=== PATIENT | female | born 1965 | race Two or more races ===

== ENCOUNTER 2017-12-02 22:10 | Inpatient (IN) | payer OTHER ==
[~2017-12-02] VITALS: Ht 162.6 cm; Wt 102.7 kg
[2017-12-02] MEDS ORDERED: HEPARIN 1,000 UNITS/ml 1ML VIAL IV ONE (22:30)
[2017-12-02] MEDS ORDERED: ATORVASTATIN 20 MG TAB PO ONE (22:30)
[2017-12-02] MEDS ORDERED: ASPirin 81 mg TAB PO ONE (22:30)
[2017-12-02] MEDS ORDERED: MORPHINE SULFATE 4 MG/ML SYR/VIAL IV ONE ×2 (22:30→22:45)
[2017-12-02] MEDS ORDERED: ONDANSETRON HCL 4 MG/2 ML VIAL IV ONE (22:30)
[2017-12-02] MEDS ORDERED: METOPROLOL TARTRATE 25 MG TAB PO ONE (22:30)
[2017-12-02] MEDS ORDERED: MORPHINE SULFATE 4 MG/ML SYR/VIAL ONE (22:35)
[2017-12-02] MEDS ORDERED: MIDAZOLAM HCL 1MG/1ML-2 ML VIAL ONE (22:40)
[2017-12-02] MEDS ORDERED: fentaNYL CITRATE 100 MCG/2 ML VL ONE (22:40)
[2017-12-02] MEDS ORDERED: SODIUM CHL 0.9% 50 ML ONE (22:40)
[2017-12-02] MEDS ORDERED: ANGIOMAX 250 MG VIAL IV ONE (22:40)
[2017-12-02] MEDS ORDERED: IOHEXOL 350 MG/ML 100ML IJ ONE (22:41)
[2017-12-02] MEDS ORDERED: LIDOCAINE HCL 2 %PF INJ 10ML AMP IJ ONE ×2 (22:41→23:09)
[2017-12-02 22:44] LABS: Basophils # (auto) 0 uL; Basophils % (auto) 0.5 % (0.0-2.0); Eosinophils # (auto) 0.3 uL; Hematocrit 46.5 % (36.0-46.0); Hemoglobin 15.6 g/dL (12.2-16.2); Lymphocytes # (auto) 3.4 uL; Lymphocytes % (auto) 36.6 % (10.0-50.0); Mean Corpuscular Hemoglobin 32.8 pg (28.0-32.0); Mean Corpuscular Hgb Conc. 33.6 g/dL (32.0-36.0); Mean Corpuscular Volume 97.8 fL (80.0-100.0); Monocytes # (auto) 0.7 uL; Neutrophils # (auto) 4.8 uL; Neutrophils % (auto) 51.9 % (37.0-80.0); Nucleated Red Blood Cells % 0.2 %; Platelet Count (auto) 304 10^3/uL (140-450); Red Blood Cells 4.75 10^6/uL (4.0-5.20); Red Cell Distribution Width 13.1 % (11.8-14.3); White Blood Cell 9.2 10^3/uL (4.4-10.8)
[2017-12-02 22:59] LABS: INR 0.89 (0.9-1.15); Partial Thromboplastin Time 24.7 sec (22.64-33.71); Prothrombin Time 9.7 sec (9.37-12.3)
[2017-12-02 23:00] LABS: Albumin 3.6 g/dL (3.4-5.0); BUN/Creatinine Ratio 12.2; Calcium 8.3 mg/dL (8.5-10.1); Potassium 4.4 mmol/L (3.5-5.1)
[2017-12-02 23:04] LABS: Bilirubin, Total 0.2 mg/dL (0.2-1.0); Total Protein 7.2 g/dL (6.4-8.2)
[2017-12-02] MEDS ORDERED: ONDANSETRON HCL 4 MG/2 ML VIAL ONE (23:08)
[2017-12-02] MEDS ORDERED: EPTIFIBATIDE INJ (2MG/ML) 10ML VIAL IV ONE (23:17)
[2017-12-02] MEDS ORDERED: ADENOSINE 6 MG/2 ML INJ IV ONE (23:18)
[2017-12-02] MEDS ORDERED: TICAGRELOR 90 MG TAB ONE (23:31)
[2017-12-02] MEDS ORDERED: EPTIFIBATIDE DRIP(0.75MG/ML) 100 ML IV ONE (23:31)
[2017-12-03] VITALS (7 sets, daily range): BP systolic 109–151; BP diastolic 63–86
[2017-12-03] MEDS ORDERED: NITROGLYCERIN 0.4 MG SL TAB SL PRN (00:15)
[2017-12-03] MEDS ORDERED: EPTIFIBATIDE DRIP(0.75MG/ML) 100 ML IV ONE ×2 (00:15→06:05)
[2017-12-03] MEDS ORDERED: ONDANSETRON HCL 4 MG/2 ML VIAL IV PRN (00:15)
[2017-12-03] MEDS ORDERED: MEPERIDINE HCL (50 MG/ML) 1 ML VIAL IV PRN (00:15)
[2017-12-03] MEDS ORDERED: HYDROcodone-ACET 5/325MG TAB PO PRN (00:15)
[2017-12-03] MEDS ORDERED: D5W/SOD CHL 0.45% 1,000 ML IV SCH (00:15)
[2017-12-03] MEDS ORDERED: MORPHINE SULFATE 4 MG/ML SYR/VIAL IV PRN (00:15)
[2017-12-03] MEDS ORDERED: ACETAMINOPHEN 500 MG TAB PO PRN (00:15)
[2017-12-03 08:47] LABS: INR 0.92 (0.9-1.15); Partial Thromboplastin Time 25.5 sec (22.64-33.71)
[2017-12-03] MEDS ORDERED: TICAGRELOR 90 MG TAB PO SCH (10:00)
[2017-12-03] MEDS: NICOTINE 14 MG/24HR TOPICAL PATCH TD SCH (10:00)
[2017-12-03] MEDS: ASPirin 81 mg TAB PO SCH (10:07)
[2017-12-03] MEDS ORDERED: ATORVASTATIN 20 MG TAB PO SCH (22:00)
[2017-12-03] MEDS: TICAGRELOR 90 MG TAB PO SCH (23:14)
[2017-12-03] MEDS: METOPROLOL TARTRATE 25 MG TAB PO SCH (23:15)
[2017-12-04 05:31] VITALS: BP 119/68
[2017-12-04 07:05] LABS: Basophils # (auto) 0 uL; Basophils % (auto) 0.4 % (0.0-2.0); Eosinophils # (auto) 0.1 uL; Eosinophils % (auto) 1.9 % (0.0-7.0); Hemoglobin 14.6 g/dL (12.2-16.2); Lymphocytes % (auto) 26.9 % (10.0-50.0); Mean Corpuscular Hemoglobin 32.9 pg (28.0-32.0); Mean Corpuscular Hgb Conc. 34.1 g/dL (32.0-36.0); Mean Corpuscular Volume 96.6 fL (80.0-100.0); Monocytes # (auto) 0.5 uL; Monocytes % (auto) 6.5 % (0.0-12.0); Neutrophils # (auto) 4.7 uL; Neutrophils % (auto) 64.3 % (37.0-80.0); Nucleated Red Blood Cells % 0.1 %; Platelet Count (auto) 247 10^3/uL (140-450); Red Blood Cells 4.45 10^6/uL (4.0-5.20); Red Cell Distribution Width 12.7 % (11.8-14.3); White Blood Cell 7.4 10^3/uL (4.4-10.8)
[2017-12-04 07:48] LABS: BUN/Creatinine Ratio 10.8; Calcium 8.1 mg/dL (8.5-10.1); Magnesium 2.4 mg/dL (1.6-2.6); Potassium 4.1 mmol/L (3.5-5.1)
[2017-12-04 09:00] VITALS: BP 121/77
[2017-12-04] MEDS: NICOTINE 14 MG/24HR TOPICAL PATCH TD SCH (10:29)
[2017-12-04] MEDS: TICAGRELOR 90 MG TAB PO SCH (10:30)
[2017-12-04] MEDS: ASPirin 81 mg TAB PO SCH (10:31)
[2017-12-04] MEDS: METOPROLOL TARTRATE 25 MG TAB PO SCH (10:31)
[2017-12-04 12:00] VITALS: BP 114/71
== END 2017-12-04 12:15 | disposition home or self-care (01) | DRG 247 ==
LOC: EDBD 22:10 → ER 22:15 → CATH 22:35 → ICU CENTRL 22:36 → DOU IN ICU 12-03 01:35 → TELE-CENTR 12-03 12:40
PROVIDERS: ADMIT Specialist; ATTEND Internal Medicine
PROC: 027034Z Dilation of Coronary Artery, One Artery with Drug-eluting Intraluminal Device, Percutaneous Approach (ICD-10-PCS; principal; 2017-12-02)
PROC: 02C03ZZ Extirpation of Matter from Coronary Artery, One Artery, Percutaneous Approach (ICD-10-PCS; 2017-12-02)
PROC: 4A023N7 Measurement of Cardiac Sampling and Pressure, Left Heart, Percutaneous Approach (ICD-10-PCS; 2017-12-02)
PROC: B2111ZZ Fluoroscopy of Multiple Coronary Arteries using Low Osmolar Contrast (ICD-10-PCS; 2017-12-02)
PROC: B41J1ZZ Fluoroscopy of Other Lower Arteries using Low Osmolar Contrast (ICD-10-PCS; 2017-12-02)
DX: I21.19 ST elevation (STEMI) myocardial infarction involving other coronary artery of inferior wall (principal); E66.9 Obesity, unspecified; F17.200 Nicotine dependence, unspecified, uncomplicated; I25.10 Atherosclerotic heart disease of native coronary artery without angina pectoris; F32.9 Major depressive disorder, single episode, unspecified; F41.9 Anxiety disorder, unspecified; K57.90 Diverticulosis of intestine, part unspecified, without perforation or abscess without bleeding; Z68.38 Body mass index [BMI] 38.0-38.9, adult; Z95.5 Presence of coronary angioplasty implant and graft; Z82.49 Family history of ischemic heart disease and other diseases of the circulatory system; Z79.899 Other long term (current) drug therapy
CPT/HCPCS: 36415; 71045; 80048; 80053; 80061; 83036; 83735; 83880; 84443; 84484; 84702; 85025; 85610; 85730; 86850; 86900; 86901; 87081; 93005; 94761; 99152; C1874; J0153; J2250; J2405

== ENCOUNTER 2019-04-21 00:37 | Emergency (ER) | payer OTHER ==
[~2019-04-21] VITALS: Ht 162.6 cm; Wt 113.4 kg
[2019-04-21] MEDS ORDERED: IPRATROPIUM BROM 0.5 MG/2.5ML INH SOL NEB ONE ×2 (01:30→04:15)
[2019-04-21] MEDS ORDERED: methylPREDNISolone SOD SUCC 125 MG/2 ML VL IV ONE (01:30)
[2019-04-21] MEDS ORDERED: ALBUTEROL SULF 2.5 MG/0.5ML(0.5%) NEB SOLN NEB ONE ×2 (01:30→04:15)
[2019-04-21 01:51] LABS: Basophils # (auto) 0.1 uL; Basophils % (auto) 0.6 % (0.0-2.0); Eosinophils # (auto) 0.6 uL; Eosinophils % (auto) 5.6 % (0.0-7.0); Hematocrit 44.3 % (36.0-46.0); Hemoglobin 15.3 g/dL (12.2-16.2); Lymphocytes # (auto) 1.1 uL; Lymphocytes % (auto) 10.6 % (10.0-50.0); Mean Corpuscular Hemoglobin 32.4 pg (28.0-32.0); Mean Corpuscular Hgb Conc. 34.5 g/dL (32.0-36.0); Monocytes # (auto) 0.5 uL; Monocytes % (auto) 5.3 % (0.0-12.0); Neutrophils # (auto) 7.8 uL; Neutrophils % (auto) 77.9 % (37.0-80.0); Nucleated Red Blood Cells % 0.1 %; Platelet Count (auto) 270 10^3/uL (140-450); Red Blood Cells 4.71 10^6/uL (4.0-5.20); Red Cell Distribution Width 12.6 % (11.8-14.3); White Blood Cell 10.1 10^3/uL (4.4-10.8)
[2019-04-21 02:05] LABS: Albumin 4.3 g/dL (3.4-5.0); Anion Gap 7 (5-15); BUN/Creatinine Ratio 18.5; Blood Urea Nitrogen 17 mg/dL (7-18); Carbon Dioxide 24 mmol/L (21-32); Chloride 108 mmol/L (98-107); GFR African American 82 mL/min; GFR Non-African American 68 mL/min; Glucose 164 mg/dL (74-106); Magnesium 2.4 mg/dL (1.6-2.6); Potassium 4.5 mmol/L (3.5-5.1); Sodium 139 mmol/L (136-145)
[2019-04-21 02:10] LABS: Alanine Aminotransferase 23 U/L (13-56); Alkaline Phosphatase 129 U/L (45-117); Aspartate Aminotransferase 18 U/L (15-37); Bilirubin, Total 0.3 mg/dL (0.2-1.0)
[2019-04-21] MEDS ORDERED: IOHEXOL 350 MG/ML 100ML IJ ONE (03:50)
[2019-04-21 09:56] VITALS: BP 156/79
== END 2019-04-21 10:22 | disposition short-term general hospital (02) ==
LOC: ER 00:38
DX: J20.9 Acute bronchitis, unspecified (principal); J01.00 Acute maxillary sinusitis, unspecified; J45.909 Unspecified asthma, uncomplicated
CPT/HCPCS: 36415; 71045; 71275; 80053; 83605; 83735; 83880; 84484; 85025; 85379; 94640; 96374; 99285; J2930; J7611; J7644; Q9967